=== PATIENT | male | born 1970 | race African-American/Black ===

== ENCOUNTER 2018-04-01 11:11 | Day surgery (SDC) | payer BC ==
[~2018-04-01] VITALS: Ht 188 cm; Wt 108.8 kg
[~2018-04-01 11:11] MED LIST: LORTAB 5-325 M1 EACH PO; VENTOLIN HFA18 GM IH
[2018-04-01 11:34] VITALS: BP 117/72
[2018-04-01] MEDS ORDERED: PERCOCET 5/31 TABLET PO (15:02)
[2018-04-01 16:05] VITALS: BP 137/78
[2018-04-01 17:00] VITALS: BP 130/79
== END 2018-04-01 17:05 | disposition home or self-care (01) ==
LOC: SDC
PROC: 0FT44ZZ Resection of Gallbladder, Percutaneous Endoscopic Approach (ICD-10-PCS; principal; 2018-04-01)
DX: K80.10 Calculus of gallbladder with chronic cholecystitis without obstruction (principal); K66.0 Peritoneal adhesions (postprocedural) (postinfection)
CPT/HCPCS: 88304; J0690; J1100; J1885; J2405; J3010; S0020